=== PATIENT | male | born 1990 | race American Indian/Alaskan Native ===

== ENCOUNTER 2019-02-15 21:31 | Emergency (ER) | payer SELFPAY ==
--- NOTE | 2019-02-15 22:19 | Emergency Department Report ---
Blank Doc - Documentation Documentation: This is a 28-year-old male that presents with headache. Stated pain is 5/10. Denies any n/v. Deneis any head injuries. Denies worst headache. Exam: normal neuro exam. no facial drooping. normal strength. This initial assessment/diagnostic orders/clinical plan/treatment(s) is/are subject to change based on patient's health status, clinical progression and re- assessment by fellow clinical providers in the ED. Further treatment and workup at subsequent clinical providers discretion. Patient/guardians urged not to elope from the ED as their condition may be serious if not clinically assessed and managed. Initial orders include: 1- Patient sent to [facility] for further evaluation and treatment
[2019-02-15] MEDS ORDERED: NORCO 5/325 PO ONE (23:09)
--- NOTE | 2019-02-15 23:10 | Emergency Department Report ---
HPI - General Chief Complaint: Headache Time Seen by Provider: 02/15/19 22:18 - HPI HPI: PT COMES TO ER WITH NEW HEADACHE. HE NEVER HAS GOTTEN HEADACHES. IT IS GLOBAL AND LIGHT HURTS HIS EYES. NO FEVER. NO TRAUMA. NO N/V. AMBULATORY TO ER. TOOK OTC MEDS AT HOME WITH NO RELIEF ED Past Medical Hx - Past Medical History Previous Medical History?: No - Surgical History Past Surgical History?: No - Family History Family history: no significant - Social History Smoking Status: Current Every Day Smoker - Medications Home Medications: Home Medications Medication Instructions Recorded Confirmed Last Taken Type Butalb/Acetaminophen/Caffeine 1 cap PO Q8HR PRN #10 cap 02/16/19 Unknown Rx [Fioricet 50-300-40 mg CAP] ED Review of Systems ROS: Stated complaint: HEAD PAIN DIZZINESS Other details as noted in HPI Comment: All other systems reviewed and negative Physical Exam - Physical Exam Vital Signs: Vital Signs 02/15/19 21:37 Temperature 98.0 F Pulse Rate 77 Respiratory 18 Rate Blood Pressure 123/71 O2 Sat by Pulse 99 Oximetry Physical Exam: ALERT AND ORIENTED NO FOCAL DEF AMBULATORY PERRL EOMS INTACT NO PRONATOR DRIFT S1S2 LUNGS CTA ABD SNT ED Course Vital Signs 02/15/19 21:37 Temperature 98.0 F Pulse Rate 77 Respiratory 18 Rate Blood Pressure 123/71 O2 Sat by Pulse 99 Oximetry ED Medical Decision Making - Radiology Data Radiology results: report reviewed, image reviewed - Medical Decision Making NO FEVER NO MENINGEAL SIGNS. NO N/V LIGHT SENSITIVE MEDICATED WITH NORCO AND GOT RELIEF IN ER CT NOTED NEG DC HOME WITH RX AND FOLLOW UP WITH NEURO. Vital Signs 02/15/19 02/15/19 21:37 23:32 Temperature 98.0 F 97.8 F Pulse Rate 77 73 Respiratory 18 18 Rate Blood Pressure 123/71 Blood Pressure 125/78 [Right] O2 Sat by Pulse 99 99 Oximetry - Differential Diagnosis HEADACHE STRESS/ MASS/ MIGRAINE/ MENINGITIS Critical care attestation.: If time is entered above; I have spent that time in minutes in the direct care of this critically ill patient, excluding procedure time. ED Disposition Clinical Impression: Headache Disposition: DC-01 TO HOME OR SELFCARE Is pt being admited?: No Does the pt Need Aspirin: No Condition: Stable Instructions: Acute Headache (ED) Additional Instructions: HYDRATE WELL WITH WATER REST DECREASE STRESS MED ORDERED AVOID WORKING IN HEAT AND GETTING DEHYDRATED FOLLOW UP WITH NEURO MD IF PERSISTS REFERRAL BELOW Prescriptions: Butalb/Acetaminophen/Caffeine [Fioricet 50-300-40 mg CAP] 1 cap PO Q8HR PRN #10 cap PRN Reason: Headache Referrals: VENU BENJAMIN MD [Referring] - 3-5 Days Time of Disposition: 01:18
[2019-02-15 23:32] VITALS: BP 125/78
--- NOTE | 2019-02-16 01:17 | Cat Scan Report ---
CT HEAD WITHOUT CONTRAST INDICATION : Headache since last without relief by [id number] medications. TECHNIQUE: Axial, coronal and sagittal CT imaging was performed from the skull apex through the skul l base without contrast. All CT scans at this location are performed using CT dose reduction for ALA RA by means of automated exposure control. COMPARISON: None available. FINDINGS: PARENCHYMA: No mass, midline shift, hemorrhage, extraaxial collection or acute territorial infarctio n. VENTRICLES: Symmetric and normal in size. SOFT TISSUES: Soft tissues including the orbits appear normal. BONES: No acute osseous abnormality. SINUSES: No significant abnormality. ADDITIONAL FINDINGS: None. IMPRESSION: No acute abnormality. Signer Name: Hal Mcallister MD Signed: 02/16/2019 1:12 AM Workstation Name: [email or web address]
== END 2019-02-16 01:30 | disposition home or self-care (01) ==
LOC: ED 21:31
DX: R51 Headache (principal); F17.200 Nicotine dependence, unspecified, uncomplicated
CPT/HCPCS: 70450; 99283

== ENCOUNTER 2020-07-08 15:30 | Emergency (ER) | payer SELFPAY | END 2020-07-08 16:58 | disposition left against medical advice (07) | LOC: ED 15:30 | DX: J45.909 Unspecified asthma, uncomplicated (principal); Z53.21 Procedure and treatment not carried out due to patient leaving prior to being seen by health care provider ==